=== PATIENT | male | born 1965 | race Caucasian/White ===

== ENCOUNTER → 2017-04-17 | Day surgery (SDC) | payer OTHER ==
[~2017-04-17] MED LIST: ZOCOR 40MG40 MG PO
[2017-04-17 04:58] VITALS: BP 129/84; PULSE 80
== END ==
LOC: SDCO 03:30
DX: T18.128A Food in esophagus causing other injury, initial encounter (principal); K22.2 Esophageal obstruction; R13.12 Dysphagia, oropharyngeal phase; I48.91 Unspecified atrial fibrillation
CPT/HCPCS: J2250; J3010